=== PATIENT | male | born 1960 | race Caucasian/White ===

== ENCOUNTER 2018-12-30 05:27 | Day surgery (SDC) | payer BC, OTHER ==
[~2018-12-30 05:27] MED LIST: Buffered Lidocaine 1% SYRIN* 1 ML/SYRINGE INTRADERM ONE
[2018-12-30] MEDS ORDERED: Buffered Lidocaine 1% SYRIN* 1 ML/SYRINGE INTRADERM ONE (06:00)
[2018-12-30] MEDS ORDERED: Lactated Ringers 1000 ML Bag* 1,000 ML IV SCH (06:00)
[2018-12-30] MEDS ORDERED: Famotidine IV* 10 MG/ML 2 ML (20 mg) IV ONE (06:00)
[2018-12-30] MEDS ORDERED: Famotidine IV* 10 MG/ML 2 ML (20 mg) ONE (06:00)
[2018-12-30] MEDS ORDERED: ceFAZolin 2 GM in NS PREMIX(*) 2 GM/100 ML BAG IVPB ONE (06:17)
[2018-12-30] MEDS ORDERED: Bupivacaine 0.5%* 50 ML VIAL ONE (06:58)
[2018-12-30] MEDS ORDERED: Dexamethasone IV* 4 MG/ML 1 ML (4 MG) ONE (07:02)
[2018-12-30] MEDS ORDERED: fentaNYL* 50 MCG/ML 2 ML VIAL (100 MCG VIAL) ONE (07:02)
[2018-12-30] MEDS ORDERED: Ondansetron INJ* 2 MG/ML VIAL ONE (07:02)
[2018-12-30] MEDS ORDERED: Lidocaine 2% PF * 5 ML VIAL ONE (07:02)
[2018-12-30] MEDS ORDERED: Propofol* 10 MG/ML 20 ML BTL ONE ×2 (07:02→07:53)
[2018-12-30] MEDS ORDERED: Ketorolac INJ* 30 MG/ML 1 ML VIAL ONE (07:02)
[2018-12-30] MEDS ORDERED: KETAMINE HCL* 50 MG/ML 10 ML VIAL ONE (07:03)
[2018-12-30] MEDS ORDERED: Midazolam* 1 MG/ML 10 ML VIAL (10 MG) ONE (07:03)
[2018-12-30] MEDS ORDERED: Lidocaine 2% PF* 10 ML AMP ONE (07:26)
[2018-12-30] MEDS ORDERED: Naloxone* 0.4 MG/ML 1 ML VIAL IV PRN (07:51)
[2018-12-30] MEDS ORDERED: Ondansetron INJ* 2 MG/ML VIAL IV PRN (07:51)
[2018-12-30] MEDS ORDERED: fentaNYL* 50 MCG/ML 2 ML VIAL (100 MCG VIAL) IV PRN (07:51)
[2018-12-30 10:32] VITALS: BP 143/86
--- NOTE | 2018-12-30 13:34 | OP ---
DATE OF OPERATION: 12/30/18 - [facility] DATE OF : 60 SURGEON: Nakul Beckett MD HEAD RIGGER: PAULINE Beavers PRE-OP DIAGNOSIS: Right second, third, fourth fixed hammertoe. POST-OP DIAGNOSIS: Right second, third, fourth fixed hammertoe. OPERATIVE PROCEDURE: Right second, third, fourth proximal interphalangeal resection arthroplasty. DESCRIPTION OF PROCEDURE: The patient had local anesthetic with sedation IV. We made transverse elliptical incisions over the second, third, and fourth PIP joints. We resected the collateral ligaments to allow visualization of the joint condyles which were removed with a narrow sagittal saw. We then pinned these toes in full extension using antegrade 0.062 C-wires. We then irrigated thoroughly closing the wounds with interrupted nylon sutures and a compression dressing applied. [id number]/[facility] #: [id number] MTDD
== END 2018-12-30 10:35 | disposition home or self-care (01) ==
LOC: OR 05:27
PROVIDERS: ATTEND Orthopaedic Surgery
DX: M20.41 Other hammer toe(s) (acquired), right foot (principal); Z86.718 Personal history of other venous thrombosis and embolism; M19.90 Unspecified osteoarthritis, unspecified site
CPT/HCPCS: C1776; J0690; J1100; J1885; J2001; J2250; J2405; J2704; J3010